=== PATIENT | female | born 1950 | race Caucasian/White ===

== ENCOUNTER 2020-04-13 09:17 | Outpatient (REF) | payer OTHER, MEDICAID, SELFPAY ==
[2020-04-13 16:01] LABS: ALT 22 U/L (14-59); AST 13 U/L (15-37); Albumin 3.9 g/dL (3.4-5.0); Alkaline Phosphatase 67 U/L (46-116); BUN 15 mg/dL (7-18); Bilirubin, Total 0.5 mg/dL (0.2-1.0); CREATININE 0.76 mg/dL (0.55-1.02); Calcium 9.6 mg/dL (8.5-10.1); Calculated LDL 43 mg/dL (<100); Chloride 104 mmol/L (98-107); Cholesterol 118 mg/dL (<200); Glucose 135 mg/dL (74-106); HDL Cholesterol 52 mg/dL (40-60); Potassium 4.1 mmol/L (3.5-5.1); Sodium 143 mmol/L (136-145); TSH (W/Ref FT4) 2.01 uIU/mL (0.36-3.74); Total Protein 7.1 g/dL (6.4-8.2); Triglyceride 118 mg/dL (<150)
[2020-04-13 16:25] LABS: Hemoglobin A1C 6.9 % (3.8-5.6)
== END 2020-04-13 09:37 ==
LOC: NCHCN 09:17
PROVIDERS: PCP Nurse Practitioner; Visit Provider Nurse Practitioner
DX: I10 Essential (primary) hypertension (principal); E11.9 Type 2 diabetes mellitus without complications; E04.2 Nontoxic multinodular goiter
CPT/HCPCS: 80053; 80061; 83036; 84443

== ENCOUNTER 2020-09-13 16:25 | Outpatient (REF) | payer OTHER, MEDICAID, SELFPAY ==
[2020-09-13 19:12] LABS: COMMENT (LAB VIEW ONLY) 243.95 mg/dL
[2020-09-13 20:02] LABS: Microalb ug/mg Crea 382.5 ug/mg Cr
== END 2020-09-13 16:45 ==
LOC: NCHCN 16:25
PROVIDERS: PCP Nurse Practitioner; Visit Provider Nurse Practitioner
DX: E11.9 Type 2 diabetes mellitus without complications (principal)
CPT/HCPCS: 82043; 82570